=== PATIENT | male | born 1965 | race Caucasian/White ===

== ENCOUNTER 2018-04-09 10:30 | Inpatient (IN) ==
[2018-04-09] MEDS ORDERED: MORPHINE IV ONE (10:33)
[2018-04-09] MEDS ORDERED: ZOFRAN IV ONE (10:34)
--- NOTE | 2018-04-09 11:09 | Diag Imaging Result Doc PS360 ---
EXAM: CT HEAD W/O CONTRAST HISTORY: stroke like symptoms TECHNIQUE: CT head without contrast. COMPARISON: None. FINDINGS: No parenchymal hemorrhage. No epidural or subdural hematoma. No subarachnoid hemorrhage. Old left thalamic infarct. There are chronic microvascular ischemic changes. No mass identified on this noncontrasted exam. No hydrocephalus. No sinus opacification. IMPRESSION: 1.No hemorrhage 2.Old left infarct with chronic microvascular ischemic changes. This exam was performed using automated exposure control, adjustment of mA or kV according to patient size, and/or use of iterative reconstruction technique. Electronically signed by Liam Irizarry 04/09/2018 11:07 AM
--- NOTE | 2018-04-09 11:26 | EKG Report ---
Test Performed on : 04/09/2018 11:13:12 AM Test Reason : chest pain Blood Pressure : / mmHG Vent. Rate : 063 BPM Atrial Rate : 063 BPM P-R Int : 204 ms QRS Dur : 088 ms QT Int : 394 ms P-R-T Axes : 036 -18 018 degrees QTc Int : 403 ms Normal sinus rhythm. Normal ECG No previous ECGs available Unconfirmed Result
[2018-04-09 11:52] LABS: BASO# 0.03 X1000 (0.0-0.2); BASO% 0.5 % (0.0-0.8); EOS# 0.03 X1000 (0.0-0.7); EOS% 0.5 % (0.0-10.0); HEMATOCRIT 49.9 % (42.0-52.0); HEMOGLOBIN 16.8 g/dL (14.0-18.0); IMM GRAN# 0.02 X1000 (0.0-0.04); IMM GRAN% 0.3 % (0.0-0.5); LYMPH# 0.96 X1000 (1.2-3.4); LYMPH% 15.5 % (20.5-51.1); MCH 29.3 PG (27-31); MCHC 33.7 g/dL (33-37); MCV 86.9 FL (81-99); MONO# 0.36 X1000 (0.11-0.59); MONO% 5.8 % (1.7-9.3); MPV 10.6 FL (7.4-10.4); NEUT# 4.79 X1000 (1.4-6.5); NEUT% 77.4 % (42.2-75.2); PLT 178 X1000 (130-400); RBC 5.74 XMIL (4.7-6.1); RDW 12.7 % (11.5-14.5); WBC 6.19 X1000 (4.8-10.8)
[2018-04-09 12:07] LABS: INR 0.89; PROTIME 12.8 Seconds (11.0-16.0)
[2018-04-09 12:08] LABS: PTT 27.9 Seconds (22.3-41.8)
[2018-04-09 12:34] LABS: AGAP 14; ALB/GLOB RATIO 1.6; ALBUMIN 4.5 g/dL (3.5-5.0); ALKALINE PHOSPHATASE 95 U/L (32-122); BUN 15 mg/dL (8-22); CALCIUM 9.7 mg/dL (8.8-10.2); CHLORIDE 101 mmol/L (98-107); COSMO 285; CREATININE 0.8 mg/dL (0.7-1.2); ESTIMATED GFR > 60; GLUCOSE 88 mg/dL (70-104); GOT 18 U/L (10-34); GPT 26 U/L (10-44); MAGNESIUM 2.1 mg/dL (1.5-2.7); POTASSIUM 4.5 mmol/L (3.5-5.1); SODIUM 143 mmol/L (136-145); TCO2 28 mmol/L (25-35); TOTAL BILIRUBIN 1.07 mg/dL (0.20-1.00); TOTAL PROTEIN 7.4 g/dL (6.3-8.3)
[2018-04-09] MEDS ORDERED: ZOFRAN IV PRN (13:47)
--- NOTE | 2018-04-09 14:09 | Diag Imaging Result Doc PS360 ---
EXAM: MRA BRAIN W/O CONTRAST HISTORY: stroke symptoms TECHNIQUE: MR angiography of the brain. MIP images obtained. COMPARISON: None. FINDINGS: There is normal flow within each distal internal carotid artery. Normal filling of the anterior and middle cerebral arteries bilaterally. No occlusion or stenosis. Normal flow in the basilar artery. Normal filling of the posterior cerebral arteries. There are dominant posterior communicating arteries bilaterally. This is a normal variant. No aneurysm. IMPRESSION: No occlusion or stenosis identified. Electronically signed by Liam Irizarry 04/09/2018 2:06 PM
--- NOTE | 2018-04-09 14:17 | Diag Imaging Result Doc PS360 ---
EXAM: MRI BRAIN W/WO CONTRAST HISTORY: stroke symptoms TECHNIQUE: MRI brain with and without contrast. Axial, sagittal, and coronal images obtained in multiple sequences. These are followed the post contrasted axial and coronal images. COMPARISON: Recent CT. FINDINGS: There is evidence of a recent right pontine infarct measuring approximately 12 x 19 mm. Old left thalamic infarct. There are chronic microvascular ischemic changes. No mass or midline shift. No enhancing lesion on the post contrasted images. No hydrocephalus. No epidural or subdural fluid collection. Normal orbits. IMPRESSION: 1.Recent right pontine infarct 2.Old left thalamic infarct with chronic microvascular ischemic changes. This report was discussed with Sandie the patient's nurse in the emergency room on 04/09/2018 at 2:15 PM and was readback. Electronically signed by Liam Irizarry 04/09/2018 2:15 PM
--- NOTE | 2018-04-09 14:40 | HISTORY AND PHYSICAL ---
HISTORY OF PRESENT ILLNESS: This is a 52 year old, who 3 days ago started having trouble with his left facial drooping, left arm weakness, trouble with his balance from mainly the left side. Family finally talked him into coming to the hospital today. He came into the hospital. CT of the head without contrast: No hemorrhage, old left infarct with chronic microvascular ischemic changes. The patient reported no history of diabetes, no history that they know of coronary artery disease, but apparently he has had high blood pressure. He was supposed to be on some medication. Family is not sure who his doctor was, not aware of any surgeries. No injury to his head. No fever or chills. EXAM: Vital Signs: Temperature 97.0 degrees, pulse 67, respirations 18, blood pressure 164/96. O2 saturation was 98%. Eyes: Pupils are equal. Head: Left facial drooping. Extremities: Left arm was weak. Left leg appeared weaker than the right side. Lungs: Clear in all lung doherty. Cardiovascular exam: Regular rhythm and rate without murmur or S3. Abdomen: Soft. Skin: Warm and dry. LABS: White count 6190, hematocrit 49, platelet count 178,000. Sodium 143, potassium 4.5, chloride 101. BUN 15, creatinine 0.8. Blood sugar 88, calcium 9.7, alkaline phos 95. ProBNP was 39. Albumin 4.5, pro time 12.8. ASSESSMENT AND PLAN: Appears to have a right hemisphere cerebrovascular accident. I will get an MRI and look at it in a little more detail. Make sure he is on aspirin. His list of home medications I do not think we have. We will watch blood pressure, but we will tolerate a little higher pressures in this setting. Blood pressure right now is 164/96, so we will watch and see what his pattern is. Will check a lipid profile in the morning. Check a hemoglobin A1c in the morning. Check T4 and TSH. We will get an MRI of the head which is what we are getting now and consider noninvasive carotid studies as well. Lets get an echocardiogram and look at his left ventricular function. I will make sure there is no mural thrombus. See what we can do to maximize his improvement with physical therapy and occupational therapy. cc: Juice Pemberton MD
--- NOTE | 2018-04-09 15:51 | ECHO REPORT ---
ORDER DATE: 04/09/2018 INTERPRETING PHYSICIAN: Dr. Pacheco Soto. ECHOCARDIOGRAPHIC MEASUREMENTS: 1. Interventricular septum 0.9 cm. 2. Left ventricular posterior wall 0.9 cm. 3. Diastolic diameter 4.7 cm. 4. Left atrium 3.9 cm. 5. Aorta 2.5 cm. SUMMARY OF THE 2-DIMENSIONAL IMAGIN. Normal left ventricular cavity size. Estimated ejection fraction of 60%. 2. Aortic valve leaflets were trileaflet. Mitral valve was normal. Tricuspid valve was normal. Pulmonic valve was normal. There is no aortic stenosis or regurgitation. Tricuspid. There was trace mitral regurgitation. 3. Trace tricuspid regurgitation. Peak velocity across the tricuspid valve less than 2 m/sec. 4. There is no pericardial effusion or obvious intracardiac mass or thrombus seen. cc: MD Alexandra Tony CRNP
--- NOTE | 2018-04-09 15:52 | PROVIDER DOCUMENTATION ---
This chart was entered by Shi Ritchie Scribe, acting as scribe for Natacha Marquez MD. HPI-Neurological Disorder - General Stated Complaint: left side weakness Time Seen by Provider: 04/09/18 10:36 Source: patient, family, EMS Unable to obtain history due to:: other (aphasia and CVA sx for 3 days) Allergies/Adverse Reactions: Patient Allergies Allergy/AdvReac Type Severity Reaction Status Date / Time No Known Allergies Allergy Verified 04/09/18 14:14 - History of Present Illness-Neuro Nature of Presenting Problem: 52 yom presents to the ed via ems with CVA sx acute onset 3 days prior. pt has a hard time communication with staff at this time Severity: reports: moderate Onset/Duration: reports: 3 days ago Timing: reports: still present Context: reports: impaired speech. denies: paresthesia, facial droop Character of Altered Mental Status: reports: agitated, other (aphasia) Any recent trauma/injury?: reports: none Character of Deficits: reports: new weakness, impaired speech, decreased ability to walk New weakness or altered sensation location:: reports: LUE, HUGOE Cognitive Baseline: alert, oriented x3 Gait Baseline: walks without assistance Associated Symptoms: reports: decreased ability to walk or stand, confusion, trouble walking, weakness, other (aphasia). denies: headache, slurred speech, vision changes Recently seen or treated by another doctor?: No Review of Systems - Adult - REVIEW OF SYSTEMS - ADULT ROS:: limited per condition Constitutional: denies: chills, fever Eyes: denies: blurred vision, double vision Ears, Nose, Mouth & Throat: reports: no symptoms reported Cardiovascular: denies: chest pain, palpitations Respiratory: denies: shortness of breath, wheezing Gastrointestinal: reports: no symptoms reported Genitourinary: reports: no symptoms reported Musculoskeletal: denies: back pain, neck pain Integumentary: reports: no symptoms reported Neurological: reports: see HPI, ataxia, other (aphasia). denies: dizziness/ vertigo, headache/migraines, slurred speech, syncope Psychiatric: reports: no symptoms reported Endocrine: reports: no symptoms reported Hematologic/Lymphatic: reports: no symptoms reported Allergic/Immunologic: reports: no symptoms reported All Other Systems: Reviewed and Negative Past History - Adult - PAST MEDICAL HISTORY-ADULT Review of Records: reports: Old Records Reviewed, Nursing Assessment Review, Medications Reviewed, Social history reviewed & non-contributory. Major Childhood Illnesses: reports: denies history Cardiovascular: reports: HTN (noncompliant with meds) Respiratory: reports: denies history Gastrointestinal: reports: denies history Genitourinary: reports: denies history Musculoskeletal: reports: denies history Neurological: reports: denies history Endocrine/Immune: reports: denies history Other Conditions: reports: denies history - PRIOR SURGERIES/PROCEDURES Surgical/Procedure History: reports: reviewed, not pertinent - IMMUNIZATION STATUS Childhood Immunizations: See Nurse Assessment Flu Vaccine: See Nurse Assessment - FAMILY HISTORY Family History: reviewed, not pertinent - SOCIAL HISTORY Smoking: cigarettes, greater than 1 pack/day Provider spent 3-5 mins advising pt. on dangers of tobacco.: Discussed manners to quit use, and f/u contacts for add'l counseling. Substance Use: denies Living Situation: family Physical Exam- Neurological - Physical Exam-Neuro Exam Limited by: aphasia Initial Vital Signs Reviewed: Yes General Appearance: alert, no apparent distress Eye Exam: bilateral eye: normal inspection HENMT: moist mucous membranes, normal ENT inspection Head Injury: no evidence of injury Neck: non-tender, full range of motion Respiratory: chest non-tender, lungs clear, normal breath sounds Cardiovascular: normal peripheral pulses, regular rate, rhythm Abdominal Exam: normal bowel sounds, non tender, soft Lymphatic: no adenopathy Extremity: non-tender, no pedal edema, no calf tenderness, normal capillary refill, pelvis stable. 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, aphasia, motor weakness Integumentary: normal color, normal turgor, warm/dry Psych/Mental Status: normal mood/affect - Glascow Coma Scale Best Eye Response: (4) open spontaneously Best Verbal Response: (5) oriented Best Motor Response: (6) obeys commands Total Glascow Score: 14 Progress - PLAN OF CARE/RESULTS Progress/Plan/Lab Results: Vital Signs - 8 hr 04/09/18 10:44 04/09/18 11:00 04/09/18 11:01 Temperature 97.0 F L Pulse Rate 67 Respiratory Rate 18 Blood Pressure 164/96 155/113 164/96 O2 Sat by Pulse Oximetry 98 99 04/09/18 11:02 04/09/18 11:10 04/09/18 11:20 Temperature Pulse Rate Respiratory Rate Blood Pressure O2 Sat by Pulse Oximetry 98 98 99 04/09/18 11:30 04/09/18 11:31 04/09/18 11:40 Temperature Pulse Rate Respiratory Rate Blood Pressure 153/100 O2 Sat by Pulse Oximetry 99 95 100 04/09/18 11:50 04/09/18 12:00 04/09/18 12:01 Temperature Pulse Rate Respiratory Rate Blood Pressure 135/89 O2 Sat by Pulse Oximetry 100 98 100 04/09/18 12:10 04/09/18 12:20 04/09/18 12:30 Temperature Pulse Rate Respiratory Rate Blood Pressure O2 Sat by Pulse Oximetry 100 99 100 04/09/18 12:31 04/09/18 12:40 04/09/18 12:50 Temperature Pulse Rate Respiratory Rate Blood Pressure 150/91 O2 Sat by Pulse Oximetry 100 99 96 04/09/18 13:00 04/09/18 13:01 Temperature Pulse Rate 63 65 Respiratory Rate 16 12 Blood Pressure 127/87 O2 Sat by Pulse Oximetry 100 99 Laboratory Results - last 24 hr 04/09/18 04/09/18 04/09/18 11:22 11:26 11:26 WBC 6.19 RBC 5.74 Hgb 16.8 Hct 49.9 MCV 86.9 MCH 29.3 MCHC 33.7 RDW Std Deviation 12.7 Plt Count 178 MPV 10.6 H Immature Gran % (Auto) 0.3 Neut % (Auto) 77.4 H Lymph % (Auto) 15.5 L Edmonson % (Auto) 5.8 Eos % (Auto) 0.5 Baso % (Auto) 0.5 Immature Gran # (Auto) 0.02 Neut # (Auto) 4.79 Lymph # (Auto) 0.96 L Edmonson # (Auto) 0.36 Eos # (Auto) 0.03 Baso # (Auto) 0.03 PT INR PTT (Actin FS) Sodium 143 Potassium 4.5 Chloride 101 Carbon Dioxide 28 Anion Gap 14 BUN 15 Creatinine 0.8 Estimated GFR/1.73 m2 > 60 BUN/Creatinine Ratio 19 Glucose 88 POC Glucose 93 Calculated Osmolality 285 Calcium 9.7 Magnesium 2.1 Total Bilirubin 1.07 H AST 18 ALT 26 Alkaline Phosphatase 95 Troponin T Lvc-O-Oveckrngqac Pept Total Protein 7.4 Albumin 4.5 Globulin 2.9 Albumin/Globulin Ratio 1.6 04/09/18 04/09/18 04/09/18 11:26 11:26 11:26 WBC RBC Hgb Hct MCV MCH MCHC RDW Std Deviation Plt Count MPV Immature Gran % (Auto) Neut % (Auto) Lymph % (Auto) Edmonson % (Auto) Eos % (Auto) Baso % (Auto) Immature Gran # (Auto) Neut # (Auto) Lymph # (Auto) Edmonson # (Auto) Eos # (Auto) Baso # (Auto) PT 12.8 INR 0.89 PTT (Actin FS) 27.9 Sodium Potassium Chloride Carbon Dioxide Anion Gap BUN Creatinine Estimated GFR/1.73 m2 BUN/Creatinine Ratio Glucose POC Glucose Calculated Osmolality Calcium Magnesium Total Bilirubin AST ALT Alkaline Phosphatase Troponin T < 0.010 Tpn-H-Orzqjlhjhhb Pept 39 Total Protein Albumin Globulin Albumin/Globulin Ratio Orders Category Date Time Status Admit - [facility] Routine AdmDCTranf 04/09/18 13:47 Active Activity - Strict Bedrest Q1D Care 04/09/18 15:12 Active Apply Mechanical Device [QM] ORDERED Care 04/09/18 15:12 Active Aspiration Precautions DIRECTED Care 04/09/18 15:12 Active Cardiac Monitoring DIRECTED Care 04/09/18 10:48 Active Elevate Head of Bed DIRECTED Care 04/09/18 15:12 Active Finger Stick Blood Sugar (ED) DIRECTED Care 04/09/18 10:48 Active IV Insertion ORDERED Care 04/09/18 15:12 Active Intake and Output-Strict ORDERED Care 04/09/18 15:12 Active Misc. NRSG Communication Order DIRECTED Care 04/09/18 10:48 Active Neurological Check ORDERED Care 04/09/18 15:12 Active Oxygen Therapy- ED Nursing DIRECTED Care 04/09/18 10:48 Active Saline Loc NOW Care 04/09/18 10:48 Active Update & Confirm Home Medicati ROUTINE Care 04/09/18 13:47 Active Vital Signs Order Q 4-HR ASSESS Care 04/09/18 15:12 Active Z-Document. for Tele Applied ORDERED Care 04/09/18 15:12 Active Physician/Provider Consults Routine Cons 04/09/18 13:47 Ordered Social Service Consult Routine Cons 04/09/18 15:12 Active NPO Diet 04/09/18 Lunch Active CHEST-PORTABLE [RAD] Stat Exams 04/09/18 10:[address] HEAD W/O CONTRAST [CT] Stat Exams 04/09/18 10:48 Completed MRA BRAIN W/O CONTRAST [MRI] Stat Exams 04/09/18 12:53 Completed MRI BRAIN W/WO CONTRAST [MRI] Stat Exams 04/09/18 12:53 Completed A1C HGB W EST AVG GLUCOSE [CHEM] Routine Lab 04/10/18 06:00 Ordered CBC WITH DIFF [HEME] Routine Lab 04/10/18 06:00 Ordered CBC WITH DIFF [HEME] Stat Lab 04/09/18 11:26 Completed COMPREHENSIVE METABOLIC PANEL [CHEM] Routine Lab 04/10/18 06:00 Ordered COMPREHENSIVE METABOLIC PANEL [CHEM] Stat Lab 04/09/18 11:26 Completed FOLATE Routine Lab 04/10/18 06:00 Ordered FREE T4 Routine Lab 04/10/18 06:00 Ordered LIPID PROFILE W/DIR LDL [LIPIDS] Routine Lab 04/10/18 06:00 Ordered MAGNESIUM [CHEM] Stat Lab 04/09/18 11:26 Completed PRO B-NATRIURETIC PEPTIDE Stat Lab 04/09/18 11:26 Completed PROTIME WITH INR [COAG] Stat Lab 04/09/18 11:26 Completed PTT [COAG] Stat Lab 04/09/18 11:26 Completed TROPONIN T Stat Lab 04/09/18 11:26 Completed TSH Routine Lab 04/10/18 06:00 Ordered URINALYSIS W/POSS RFLX CULT [URINALYSIS] Stat Lab 04/09/18 10:48 Uncollected VITAMIN B12 Routine Lab 04/10/18 06:00 Ordered 0.9% Sodium Chloride Inj [Ns] 1,000 ml Med 04/09/18 13:47 Active IV 85 mls/hr ATORVAstatin [Lipitor] Med 04/09/18 21:00 Active 40 mg PO QHS Acetaminophen [Tylenol] Med 04/09/18 13:47 Active 650 mg PO Q6H PRN PRN Aspirin Med 04/10/18 09:00 Active 81 mg PO DAILY Morphine Med 04/09/18 10:33 Discontinued 6 mg IV NOW ONE Ondansetron [Zofran] Med 04/09/18 10:34 Discontinued 4 mg IV NOW ONE Ondansetron [Zofran] Med 04/09/18 13:47 Active 4 mg IV Q4H PRN PRN Oxygen Device Routine Oth 04/09/18 15:12 Active Telemetry [OM.EQ] Routine Oth 04/09/18 15:12 Active Carotid Ultrasound Routine Ther 04/09/18 13:47 Completed EKG [EKG] Stat Ther 04/09/18 11:13 Draft Echo Spec/Color Dop W/O Contra Routine Ther 04/09/18 13:47 Ordered Occupational Therapy Eval/Treatment [OM.OT] Routine Ther 04/09/18 15:12 Active Physical Therapy Eval/Treatment [OM.PT] Routine Ther 04/09/18 15:12 Active Speech Evaluation [OM.SPT] Routine Ther 04/09/18 15:12 Active Transfer/Admit Order [TRANSFER] Routine Transfer 04/09/18 13:38 Completed TPA not given due to time of onset of sx 3 days prior Patient care, assessment and plan discussed with the attending physician Dr. Saab and he agree with the plan as documented. Patient also seen and examined by Dr. Hiro Saab. Result Diagrams: 04/09/18 11:26 04/09/18 11:26 - REASSESSMENT Reassessment #1 Time Reassessed: 11:25 (dr at bedside ) Status: unchanged Reassessment Comment: pt is back from CT and resting in bed - EKG 1 Time of EKG reading by physician:: 11:13 EKG Read and Signed by:: Natacha Decker EKG Interpretation (*Must complete 3 of following elements*): Normal Rate: 63 Rhythm: nsr Earle: normal QRS: normal TN Interval: normal ST Wave: normal - CT/MRI 1 CT Study: Head (EXAM: CT HEAD W/O CONTRAST HISTORY: stroke like symptoms TECHNIQUE: CT head without contrast. COMPARISON: None. FINDINGS: No parenchymal hemorrhage. No epidural or subdural hematoma. No subarachnoid hemorrhage. Old left thalamic infarct. There are chronic microvascular ischemic changes. No mass identified on this noncontrasted exam. No hydrocephalus. No sinus opacification. IMPRESSION: 1.No hemorrhage 2.Old left infarct with chronic microvascular ischemic changes. This exam was performed using automated exposure control, adjustment of mA or kV according to patient size, and/or use of iterative reconstruction technique. Electronically signed by Liam Irizarry 04/09/2018 11:07 AM 04/09/18 1107 Interpreting Physician: Liam Irizarry MD Dictated Date/Time: 04/09/18 1106 cc: Natacha Decker MD;) - CONSULTS/PCP/HOSPITALIST Notification #1 *Consult/PCP/Hospitalist*: [employer] Alexandra admit for Dr. Pemberton Time Discussed: 12:55 Consult Disposition: Admit (Accepted.) Departure - Departure Date of Disposition Decision: 04/09/18 Time of Disposition Decision: 12:57 DIAGNOSIS: Tobacco use disorder, Aphasia, Weakness of left side of body, TIA (transient ischemic attack) Disposition: ADMITTED INPATIENT 09 Certified Medical Emergency: Emergent Condition: Stable - Critical Care Note This patient required my direct & personal management of CC.: Yes Total Time (mins): 46 Critical Care Statement: This patient required my direct personal management to treat or rule out processes, the absence of which, could potentiallly result in sudden, clinically significant life or limb threatening deterioration. Attestation - Physician/ SULAIMAN Attestation Patient care was provided by Advanced Practice Provider:: No The physician spent face to face time with patient:: Yes Advanced Practice Provider documentation review:: Supervising physician onsite and consulted in the evaluation and care of this patient. The physician did have a face to face encounter with the patient. - NIH Stroke Scale Level of Consciousness: 0-Alert LOC Questions (ask month and age): 0-Answers Both Correctly LOC Commands (ask to open & close eyes;make a fist, let go): 0-Obeys Both Correctly Best Gaze (horizontal eye movement): 0-Normal Visual (use finger movement, counting or visual threat): 0-No Visual Loss Facial Palsy (show teeth or raise eyebrows & close eyes tght: 0-Symmetrical Movement Motor Function-left arm: 1-Drift Motor Function-right arm: 0-Normal Motor Function-left le-Drift Motor Function-right le-Normal Limb Ataxia(zrrsyf-eruo-whdnqb, or heel to lockwood): 2-Present in two limbs Sensory(pin prick to face,arms,trunk,legs-compare side/side): 0-No Ataxia Best Language(name item/read sentence.Ex-Down to Earth): 1-Mild to Moderate Aphasia Dysarthria(Pt read words or say words Ex.Mama,Tip-Top,Thanks: 1-Mild-Mod Slurring Words Extinction and Inattention: 0-Normal NIH Total Score: 6 This chart was documented by the indicated scribe, (Shi Ritchie Scribe) and accurately reflects the services I performed and decisions made by me, Natacha Marquez MD, as attested by the provider's signature.
[2018-04-09] MEDS: NS 1,000 ML IV SCH (16:00)
[2018-04-09] MEDS ORDERED: FLU VACCINE IM ONE (18:37)
[2018-04-09] MEDS: LIPITOR PO SCH (23:16)
--- NOTE | 2018-04-10 03:39 | CONSULTATION ---
DATE OF CONSULTATION: 04/09/2018 HISTORY OF PRESENT ILLNESS: Mr. Appiah is 52 years old, and he has had a stroke. History from the patient and attentive [id number] is that he suddenly became unsteady with gait, weak on the left side, and dysarthric about 2 days ago. There was no reported headache. There was no altered awareness or altered consciousness. He presents to the emergency room today. Reports that this deficit has been persistent, not significantly improved or worse in the last 2 days since onset. There is a history of a prior stroke about 10 years ago, also causing left- sided weakness. He is not aware of any other stroke history. There is no history of serious head injury. He has never had seizure or other neurologic event. He reports a diagnosis of hypertension many years ago, and he took medicine for a while, but has not been taking his blood pressure medicine recently. He reports no history of diagnosed dyslipidemia, diabetes mellitus, other medical illness. Neither he nor sister- in-law are aware of any family history of stroke at a young age. He denies ethanol abuse. He denies illicit drug use, specifically denies using cocaine He was not taking any medications recently. He has not taken aspirin or other antiplatelet medication regularly. Workup here includes labs showing nothing remarkable. Noncontrast CT shows apparent old left thalamic infarction. Brain MRI shows that lesion, and additional finding of acute right brainstem infarction. This involves mostly the pete. Brain MRA is unremarkable today. He has been afebrile. His blood pressure was recorded 160s/90s. PHYSICAL EXAMINATION: On exam, Mr. Appiah is awake, alert, attentive. Speech is very dysarthric, but can be understood. Language function is intact on bedside testing. Head and neck are unremarkable. Visual doherty are full, tested by confrontational finger counting. He has good lateral and vertical eye movement, and this appears conjugate on confrontation testing. He reports no diplopia. Facial motility is a little bit diminished on the left. Tongue is midline. Palate is midline. He reports good pinprick appreciation on the left and right face. He has diminished pinprick appreciation over the left limbs compared to the right. He has left hemiparesis, grading 3/5 in the arm and leg. Power is good in the right limbs. I did not test his gait. Plantar response is extensor on the left, and silent on the right. IMPRESSION: Acute right pontine infarction, with left hemiparesis, minimal left -sided sensory deficit, prominent dysarthria and dysphagia, but no definite gaze palsy. Risk factors for stroke include apparent previous ischemic stroke, untreated hypertension. He has a workup in progress now. Preliminary report on carotid ultrasound is that there is no significant carotid stenosis. Further plans will depend on his clinical course and results of workup. I encouraged him to quit smoking cigarettes. We need to manage blood pressure conservatively, and manage his other risk factors aggressively. In light of his young age and apparent history of prior stroke, at an even younger age, will order the usual coagulation labs, but expect these to be noncontributory when finally reported. For now, I would continue aspirin daily. Thanks for asking Neurology to see Mr. Appiah. cc: MD REED Dykes III
--- NOTE | 2018-04-10 06:01 | Diag Imaging Result Doc PS360 ---
EXAM: CHEST-PORTABLE HISTORY: stroke like symptoms TECHNIQUE: Portable chest COMPARISON: None. FINDINGS: The lungs are well expanded. The heart is not enlarged. The vessels are not distended. There are no infiltrates. No effusion identified. IMPRESSION: Negative exam. Electronically signed by Liam Irizarry 04/10/2018 5:59 AM
[2018-04-10 07:10] LABS: BASO# 0.03 X1000 (0.0-0.2); BASO% 0.6 % (0.0-0.8); EOS# 0.06 X1000 (0.0-0.7); EOS% 1.2 % (0.0-10.0); HEMATOCRIT 45.2 % (42.0-52.0); HEMOGLOBIN 15.4 g/dL (14.0-18.0); LYMPH# 1.21 X1000 (1.2-3.4); LYMPH% 23.7 % (20.5-51.1); MCH 29.8 PG (27-31); MCHC 34.1 g/dL (33-37); MCV 87.6 FL (81-99); MONO# 0.37 X1000 (0.11-0.59); MONO% 7.2 % (1.7-9.3); MPV 10.5 FL (7.4-10.4); NEUT# 3.44 X1000 (1.4-6.5); NEUT% 67.3 % (42.2-75.2); PLT 154 X1000 (130-400); RBC 5.16 XMIL (4.7-6.1); RDW 12.7 % (11.5-14.5); WBC 5.11 X1000 (4.8-10.8)
[2018-04-10 07:21] LABS: HEMOGLOBIN A1C 5.2 % (4.8-6.0)
[2018-04-10 07:47] LABS: AGAP 13; ALB/GLOB RATIO 1.7; ALKALINE PHOSPHATASE 82 U/L (32-122); BUN 17 mg/dL (8-22); CALCIUM 9.1 mg/dL (8.8-10.2); CHLORIDE 104 mmol/L (98-107); COSMO 285; CREATININE 0.7 mg/dL (0.7-1.2); ESTIMATED GFR > 60; GLUCOSE 80 mg/dL (70-104); GOT 12 U/L (10-34); GPT 17 U/L (10-44); POTASSIUM 3.9 mmol/L (3.5-5.1); SODIUM 143 mmol/L (136-145); TCO2 26 mmol/L (25-35); TOTAL BILIRUBIN 1.31 mg/dL (0.20-1.00); TOTAL PROTEIN 6.3 g/dL (6.3-8.3)
[2018-04-10 07:58] LABS: FREE T4 1.18 ng/dL (0.93-1.70); TSH 0.92 uIUmL (0.27-4.20)
[2018-04-10] MEDS: ASPIRIN PO SCH (09:41)
[2018-04-10] MEDS: NS 1,000 ML IV SCH ×2 (09:42→12:51)
--- NOTE | 2018-04-10 10:56 | PROGRESS NOTE ---
DATE: 04/10/2018 SUBJECTIVE: Mr. Appiah reports no new problems overnight. WORKUP: His MRI shows acute right pontine infarction. There is evidence of old left thalamic infarction which appears chronic. Brain MRA was unremarkable. Verbal report is that carotid ultrasound is unremarkable. Echocardiogram showed no source of embolus. Systolic blood pressures have been stable 110s to 130s. OBJECTIVE: On exam, he is awake and alert today. Voice seems a little bit stronger. Speech remains very dysarthric, but may be slightly improved compared to yesterday. Left hemiparesis persists. He reports continued diminished pinprick and light touch appreciation over the left hand, but this may be a little bit less prominent than yesterday. Proprioception is good at the left second finger PIP joint. He has full visual doherty tested grossly by confrontational finger counting. He reports no diplopia. Lateral gaze remains good with conjugate eye movements to confrontation. 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 Course has been stable over the last 24 hours here, and he reports stable course for approximately 48 hours before he presented. Therefore, I think we can treat blood pressure if needed, but would not add antihypertensive medication with current blood pressures. Would continue stain and aspirin. I do not have any new suggestion from neurologic standpoint. I reviewed his risk factors with him, encouraged him to quit smoking and to establish followup with a primary clinic. Thanks for asking Neurology to see Mr. Appiah. cc: MD REED Dykes III
--- NOTE | 2018-04-10 13:29 | PROGRESS NOTE ---
DATE: 04/10/2018 SUBJECTIVE: Mr. Appiah is awake this morning. His left arm and left leg are weak. He has minimal facial drooping on the left side. Left shoulder shrug is weak as well. He denies any change in vision. His tongue is slightly to the left. OBJECTIVE: He remains afebrile, temperature 98.2, pulse 68, respirations 17, blood pressure 127/79. Pupils are equal and round. Lungs are clear in all lung doherty. Cardiovascular: Regular rhythm and rate without murmur or S3. Abdomen is soft. Skin is warm and dry. I reviewed his lab from yesterday. His lipid profile: Triglycerides 196, LDL was 180, HDL 27. B12 was 294. Folate 12.3. Thyroid TSH 0.92 and free T4 was 1.18. I appreciate Dr. Solitario's help. 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 Minimal left sensory deficit. No definite gaze palsy that he discovered. It had been stable for over 48 hours, so, we will watch blood pressure and try to keep that under good control and work on all of his risk factors. He would benefit from a statin. Renal function looks good. So, he is on Lipitor 40 mg a day, aspirin 81 mg a day. Blood pressures have appeared well controlled. I will continue occupation and physical therapy. He may need to go to rehab. We will see how he does swallowing. cc: Juice Pemberton MD
--- NOTE | 2018-04-10 16:55 | Carotid Study ---
DATE: 04/09/2018 PROCEDURE: Carotid duplex imaging. REFERRING PHYSICIAN: [*] INTERPRETING PHYSICIAN: Dr. Abrams TECH: Marily INDICATIONS: Stroke. OBSERVED DATA RIGHT LEFT Brachial Blood Pressure Carotid Pulse Bruits: Carotid/Sub DIAGRAM OF ULTRASOUND IMAGING R L RIGHT INT EXT INT EXT LEFT Alex (cm/s) Alex (cm/s) Subclavian 63/0 Subclavian 79/1 CCA Proximal 97/20 CCA Proximal 106/23 CCA Distal 91/21 CCA Distal 73/18 Bulb 70/14 Bulb 76/21 ICA Proximal 51/15 ICA Proximal 59/20 ICA Mid 56/21 ICA Mid 71/28 ICA Distal 69/27 ICA Distal 73/27 ECA 90/13 ECA 78/10 Vertebral 24/6 Vertebral 34/7 ICA/CCA Ratio 0.7 ICA/CCA Ratio 0.7 % Stenosis 0 to 39 % Stenosis 0 to 39 FINDINGS: There is minimal atherosclerotic disease throughout the carotid system. There is no significant stenosis produced, and there is antegrade vertebral flow bilaterally. PHYSICIAN INTERPRETATION: Unremarkable carotid imaging. cc: MD Alexandra Kelly CRNP
[2018-04-10] MEDS: LIPITOR PO SCH (21:01)
[2018-04-11] MEDS: NS 1,000 ML IV SCH ×3 (04:50→18:52)
[2018-04-11] MEDS: ASPIRIN PO SCH (08:53)
--- NOTE | 2018-04-11 11:06 | PROGRESS NOTE ---
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 I do not appreciate left facial droop. Left shoulder shrug may be a little stronger as well. He is awake and alert. His speech is not a problem. He says he is swallowing okay. He remains afebrile. OBJECTIVE: Temperature 98, pulse 72, respirations 18, blood pressure 135/82. Pupils are equal and round. Lungs are clear in all lung doherty. Cardiovascular: Regular rhythm and rate without murmur or S3. Abdomen is soft. Skin is warm and dry. Urine output is 3200 mL. 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 Minimal left sensory deficit. No definite gaze palsy. He showed slight improvement and stable. Blood pressures appear well controlled. He is on a statin. I think he would benefit from trying to go to rehab. I think they would like to try and go some place close. We will continue present orders. Physical therapy and occupational therapy. The patient is getting aspirin 81 mg a day and on Lipitor 40 mg at bedtime, getting normal saline at 85 mL an hour. Blood pressures look like they are well controlled but not too low. cc: Juice Pemberton MD
[2018-04-11] MEDS: TYLENOL PO PRN ×2 (16:29→21:34)
[2018-04-11] MEDS: LIPITOR PO SCH (21:30)
[2018-04-12] MEDS: NS 1,000 ML IV SCH ×2 (02:32→13:34)
[2018-04-12] MEDS: ASPIRIN PO SCH (09:54)
--- NOTE | 2018-04-12 17:04 | PROGRESS NOTE ---
DATE: 04/12/2018 Mr. Appiah is actually moving his left arm a little better squeezing a little stronger squeeze and left shoulder moving better so overall he has improved neurologically. Temperature 98.4 degrees, pulse 56, respirations 18, blood pressure 148/87. Pupils are equal and round.Lungs: Clear in all lung doherty. Cardiovascular: Regular rhythm rate without murmur or S3. Abdomen: Soft. Skin: Warm and dry. Urine output 4700 mL. ASSESSMENT AND PLAN: 1. 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 He has no sensory deficit and no gaze palsy so encouraged by improvement, continue physical therapy and occupational therapy. 2. Review of his orders he is getting aspirin 81 mg a day, Lipitor 40 mg a day, we have normal saline going 85 mL an hour. The hope is to look for rehab tomorrow. cc: Juice Pemberton MD
[2018-04-12] MEDS: LIPITOR PO SCH (20:36)
[2018-04-13] MEDS: NS 1,000 ML IV SCH ×2 (01:01→14:35)
[2018-04-13] MEDS: TYLENOL PO PRN ×2 (08:02→15:40)
--- NOTE | 2018-04-13 08:37 | Diag Imaging Result Doc PS360 ---
EXAM: CHEST-2 VIEWS HISTORY: tempature TECHNIQUE: Chest two views COMPARISON: 04/09/2018 FINDINGS: The lungs are well expanded. The heart is not enlarged. The vessels are not distended. There are no infiltrates. No pleural effusions. IMPRESSION: No pneumonia. Electronically signed by Liam Irizarry 04/13/2018 8:35 AM
[2018-04-13] MEDS: ASPIRIN PO SCH (11:02)
--- NOTE | 2018-04-13 13:38 | PROGRESS NOTE ---
DATE: 04/13/2018 SUBJECTIVE: Mr. Appiah had a little bit of fever. He is stronger in his left arm and shoulder pain, but he did spike a temp a 101.9 degrees. I did get blood cultures, checked chest x-ray and will check a urinalysis as well. Chest x-ray showed no sign of pneumonia. OBJECTIVE: Vitals: Temperature right now 99.5, pulse 75, respirations 20, blood pressure 122/72. Eyes: Pupils are equal. Lungs: Clear anterolateral and posterior. Cardiovascular: Regular rhythm and rate without murmur or S3. Abdomen: Soft. Skin: Warm and dry. Gu: Good urine output. Musculoskeletal/neurologic: As reported, left is analyst and left arm strength seem to have improved. Left leg seems to be stronger as well. He denies any trouble swallowing. ASSESSMENT AND PLAN: 1. Acute right pontine CVA with left hemiparesis. Seems to be neurologically and clinically improving. He has no sensory deficit. No gaze palsy. So plan is to try and get him to rehab. 2. Fever. Possible urinary tract. I think I will go ahead and give him some Rocephin 1 g now and daily until we have cultures back. 3. Carotid ultrasound was unremarkable. No significant lesions. An echocardiogram from 04/09/2018 was unremarkable as well. No mural thrombus. No sign of significant valvular dysfunction. 4. Review of his orders: Continue present Lipitor 40 mg a day, aspirin 81 mg a day. He is getting normal saline at 85 mL an hour. I will give him now Rocephin at 1 g and then 1 g daily until cultures return. cc: Juice Pemberton MD
[2018-04-13 13:56] LABS: URINE SOURCE CLEAN CATCH
[2018-04-13 14:08] LABS: BILIRUBIN URINE NEGATIVE (NEGATIVE); BLOOD URINE NEGATIVE (NEGATIVE); COLOR YELLOW; GLUCOSE URINE NEGATIVE (NEGATIVE); KETONE URINE NEGATIVE (NEGATIVE); LEUKOCYTES URINE NEGATIVE (NEGATIVE); NITRITE URINE NEGATIVE (NEGATIVE); PROTEIN URINE TRACE mg/dL (NEGATIVE); SP GRAVITY URINE 1.006; TURBIDITY URINE CLEAR (CLEAR); UROBILINOGEN URINE 3 mg/dL (NORMAL)
[2018-04-13 14:09] LABS: UR EPITHELIAL CELLS <10 /HPF (<10); URINE BACTERIA NEGATIVE /HPF; URINE RBC <10 /HPF (<10); URINE WBC <10 /HPF (<10)
[2018-04-13] MEDS: ROCEPHIN 1 GM in NS 50 ML IV SCH (14:35)
[2018-04-13] MEDS: LIPITOR PO SCH (22:24)
[2018-04-14] MEDS: NS 1,000 ML IV SCH ×2 (04:24→11:03)
[2018-04-14] MEDS: ASPIRIN PO SCH (09:03)
[2018-04-14] MEDS ORDERED: MILK OF MAGNESIA PO PRN (12:26)
--- NOTE | 2018-04-14 12:35 | PROGRESS NOTE ---
DATE: 04/14/2018 SUBJECTIVE: This morning, Mr. Appiah refers to be doing fairly okay. Denies any acute complaints. He has been afebrile since yesterday. OBJECTIVE: Vital signs: Blood pressure is 123/60, pulse 77, respiration is 17 , temperature 97.8 degrees. Patient is saturating 98%. General: Mr. Appiah is a 52-year-old gentleman. He was in bed in no distress. Mucosa: [place] and moist. Anicteric. Acyanotic. Neck: Supple. Chest: Good air entry bilateral. There was no crepitations, no rhonchi. Cardiovascular: Regular rate and rhythm. No murmurs, no rubs, no gallops. Abdomen: Soft and nontender. Bowel sounds present. Extremities: No pedal edema. Distal pulses were present. COLOR TECHNICIAN : Patient is awake, alert, follows commands. Does have a left-sided hemiparesis. LABORATORY DATA: Not since the . Physical therapy notes yesterday did show that Mr. Appiah was able to do 40 feet with minimum assistance front wheel walker. No Social/Case Management note since the . DIAGNOSTIC STUDIES: An MRI of the brain which was done on presentation did show a recent right pontine infarct. There was also an old left thalamic infarct, and an MRA was negative for any occlusion or stenosis. The carotid Doppler was unremarkable for any significant disease process. The patient has been evaluated by Neurology. ASSESSMENT: 1. Acute right pontine cerebrovascular accident with subsequent left-sided hemiparesis noted. 2. Pyrexia of unclear infection source. There is a suggestion that this could be urinary tract infection. We are still pending the urine culture and blood culture. Patient was presumptively started on ceftriaxone yesterday. 3. Dyslipidemia. Patient had been started on medications. 4. Hypertension, fairly controlled. The patient is currently not actually on any medications. PLAN: So in general, I think Mr. Appiah seems to be doing fairly okay. He has been walking with physical therapy, needing very minimum assistance. We will see what he does today and then have a better idea if he will be able to be home by himself with home health or that he needs to be in rehab. Will also be pending further evaluation from Social Work as to the discharge planning. cc: Bert Richey MD [facility] HOSPITALBrittany
[2018-04-14] MEDS: ROCEPHIN 1 GM in NS 50 ML IV SCH (14:53)
[2018-04-14] MEDS: LIPITOR PO SCH (20:59)
[2018-04-15 07:29] LABS: BASO# 0.03 X1000 (0.0-0.2); BASO% 0.4 % (0.0-0.8); EOS# 0.15 X1000 (0.0-0.7); EOS% 2.2 % (0.0-10.0); HEMOGLOBIN 14.9 g/dL (14.0-18.0); IMM GRAN# 0.03 X1000 (0.0-0.04); IMM GRAN% 0.4 % (0.0-0.5); LYMPH# 1.01 X1000 (1.2-3.4); LYMPH% 14.8 % (20.5-51.1); MCH 29.7 PG (27-31); MCHC 34.7 g/dL (33-37); MCV 85.8 FL (81-99); MONO# 0.62 X1000 (0.11-0.59); MONO% 9.1 % (1.7-9.3); MPV 11.2 FL (7.4-10.4); NEUT# 4.99 X1000 (1.4-6.5); NEUT% 73.1 % (42.2-75.2); PLT 120 X1000 (130-400); RBC 5.01 XMIL (4.7-6.1); RDW 12.8 % (11.5-14.5); WBC 6.83 X1000 (4.8-10.8)
[2018-04-15 07:43] LABS: AGAP 9; ALBUMIN 3.6 g/dL (3.5-5.0); BUN 11 mg/dL (8-22); CALCIUM 9.2 mg/dL (8.8-10.2); CHLORIDE 102 mmol/L (98-107); COSMO 276; CREATININE 0.7 mg/dL (0.7-1.2); ESTIMATED GFR > 60; GLUCOSE 89 mg/dL (70-104); PHOSPHORUS 2.8 mg/dL (2.7-4.5); POTASSIUM 3.6 mmol/L (3.5-5.1); SODIUM 139 mmol/L (136-145); TCO2 28 mmol/L (25-35)
[2018-04-15] MEDS: ASPIRIN PO SCH (09:03)
[2018-04-15] MEDS ORDERED: CALMOSEPTINE OINTMENT TOP PRN (09:37)
[2018-04-15] MEDS: ROCEPHIN 1 GM in NS 50 ML IV SCH (14:24)
[2018-04-15 14:52] VITALS: BP 120/75
--- NOTE | 2018-04-16 06:00 | DISCHARGE SUMMARY ---
ADMISSION DATE: 04/09/2018 DISCHARGE DATE: 04/15/2018 DISPOSITION: Home. FOLLOWUP: 1. Dr. Solitario. 2. Dr. Powell. CONSULTATIONS DURING THIS ADMISSION: Neurology was consulted. The patient was seen by Dr. Solitario. INVASIVE PROCEDURES DONE DURING THIS ADMISSION: None. IMAGING STUDIES OF SIGNIFICANCE: 1. An MRA of the brain showed no occlusion or stenosis. 2. A brain MRI did show a recent right pontine infarct, and an old left thalamic infarct, with chronic microvascular ischemic changes. 3. A carotid Doppler ultrasound was negative for any significant extracranial stenosis. 4. An echocardiogram did show an ejection fraction of 60%, with normal valves. DISCHARGE MEDICATIONS: 1. Aspirin 81 mg daily. 2. Atorvastatin 40 mg at bedtime. ADMISSION DIAGNOSIS: Right hemispheric cerebrovascular accident. DIAGNOSES AT THE TIME OF DISCHARGE: 1. Acute right pontine cerebrovascular accident, with subsequent left-sided hemiparesis. 2. Dyslipidemia. 3. Hypertension, controlled on diet. 4. Pyrexia of unclear source, resolved. Cultures negative. PRESENTING COMPLAINT: Left facial droop, left arm weakness. HISTORY OF PRESENTING COMPLAINT: Mr. Appiah is a 52-year-old gentleman who presented to the emergency department because of acute onset of left-sided weakness. The patient was evaluated and admitted for CVA workup. HOSPITAL COURSE: The patient did pretty well during the hospital course. He was evaluated by Neurology on 2 different occasions. An MRI of the brain confirmed a right pontine infarct. All the ischemic workups were negative. The patient did have multiple sessions of physical therapy, as well as occupational and speech therapy. He was able to tolerate his diet, even after today, 100% documented. He was having regular bowel movements as well. I think his main issue was at the time of the discharge, he did not really seem to have any family support. licensed social worker has been working diligently on this, and there are arrangements for him to get Medicaid, and also to get home PT, OT, and ST. We will be pending the final arrangements before Mr. Appiah gets discharged today. DISCHARGE INSTRUCTIONS: All the discharge instructions have been discussed with him. TIME SPENT FOR DISCHARGE: 35 minutes. FOLLOWUP: Mr. Appiah is supposed to follow up with Dr. Solitario for the stroke, and he is also supposed to follow up with Cardiology, Dr. Powell, to evaluate for a possible event recorder (may be a Holter monitor for 30 days) to rule out possible any cardiac arrhythmia that could predisposed him to CVA. Most of his ischemic workup in the hospital was unremarkable. cc: Bert Richey MD MTDD
== END 2018-04-15 18:35 | disposition home or self-care (01) | DRG 65 ==
LOC: ED 10:30 → SUATTDRO 14:09 → EDIPHOLD 14:09 → 3N 14:55
PROVIDERS: ATTEND Internal Medicine
CPT/HCPCS: 70450; 70544; 70553; 71010; 71020; 71045; 71046; 80053; 80061; 80069; 81001; 82607; 82746; 82948; 83036; 83090; 83721; 83735; 83880; 84155; 84165; 84439; 84443; 84484; 85025; 85300; 85301; 85302; 85306; 85610; 85612; 85613; 85651; 85730; 87040; 92523; 93005; 93306; 93880; 94761; 97110; 97116; 97162; 97165; 97530; 99285; A9270; A9579; J0696; J2405; J7030; XXXXX